=== PATIENT | female | born 1940 | race Caucasian/White ===

== ENCOUNTER → 2016-09-29 | Outpatient (CLI) | payer OTHER, BC | LOC: CIMAGING 10:01 | DX: Z12.31 Encounter for screening mammogram for malignant neoplasm of breast (principal); Z80.3 Family history of malignant neoplasm of breast | CPT/HCPCS: G0202 ==

== ENCOUNTER → 2016-11-01 | Outpatient (CLI) | payer OTHER, BC | LOC: CIMAGING 12:37 | DX: D17.1 Benign lipomatous neoplasm of skin and subcutaneous tissue of trunk (principal) | CPT/HCPCS: 76641; G0206 ==

== ENCOUNTER 2017-01-29 08:19 | Emergency (ER) | payer OTHER, BC ==
[2017-01-29] MEDS ORDERED: LET GEL TOPICAL 1 EA SYR TP ONE (08:26)
[2017-01-29 08:30] VITALS: PULSE 65; RESP 16
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
[2017-01-29] MEDS ORDERED: SKIN ADHESIVE (DERMABOND) 1 EACH TP ONE (08:46)
[2017-01-29] MEDS ORDERED: ACETAMINOPHEN 500 MG TAB PO ONE ×2 (08:49→08:50)
[2017-01-29 09:43] VITALS: BP 105/76; TEMP 97.5; O2SAT 96
== END 2017-01-29 09:42 | disposition home or self-care (01) ==
LOC: CED 08:19
PROC: 08QPXZZ Repair Left Upper Eyelid, External Approach (ICD-10-PCS; principal; 2017-01-29)
DX: S52.022A Displaced fracture of olecranon process without intraarticular extension of left ulna, initial encounter for closed fracture (principal); S01.112A Laceration without foreign body of left eyelid and periocular area, initial encounter; S80.212A Abrasion, left knee, initial encounter; S80.02XA Contusion of left knee, initial encounter; V18.0XXA Pedal cycle driver injured in noncollision transport accident in nontraffic accident, initial encounter; Y99.8 Other external cause status; Y93.55 Activity, bike riding
CPT/HCPCS: 12011; 73070; 99283; A4565

== ENCOUNTER 2017-01-31 08:28 | Day surgery (SDC) | payer OTHER, BC ==
[~2017-01-31 08:28] MED LIST: ceFAZolin 2 GM/DEXTROSE 100 ML IV ONE
[2017-01-31] MEDS ORDERED: LR 1,000 ML IV ONE (08:55)
[2017-01-31] MEDS ORDERED: LIDOCAINE 1% 2 ML INJ ID PRN (08:55)
[2017-01-31] MEDS ORDERED: BUPIVACAINE 0.5% 30 ML SDV ONE (09:02)
[2017-01-31 09:22] VITALS: PULSE 61
[2017-01-31] MEDS ORDERED: ceFAZolin 2 GM/DEXTROSE 100 ML IV ONE (10:00)
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
[2017-01-31] MEDS ORDERED: MIDAZOLAM 2 MG/2 ML VIAL IVP ONE (11:16)
--- NOTE | 2017-01-31 11:18 | PDANEPAE ---
ANE Past Medical History - Cardiovascular History Hx Hypertension: No Hx Arrhythmias: No Hx Chest Pain: No Hx Coronary Artery / Peripheral Vascular Disease: No Hx CHF / Valvular Disease: No Hx Palpitations: No - Pulmonary History Hx COPD: No Hx Asthma/Reactive Airway Disease: No Hx Recent Upper Respiratory Infection: No Hx Oxygen in Use at Home: No Hx Sleep Apnea: No Sleep Apnea Screening Result - Last Documented: Negative - Neurologic History Hx Cerebrovascular Accident: No Hx Seizures: No Hx Dementia: No - Endocrine History Hx Diabetes: No Hypothyroid: No Hyperthyroid: No Obesity: no - Renal History Hx Renal Disorders: No - Liver History Hx Hepatic Disorders: No - Neurological & Psychiatric Hx Hx Neurological and Psychiatric Disorders: No - Cancer History Hx Cancer: No - Congenital Disorder History Hx Congenital Disorders: No - GI History Hx Gastrointestinal Disorders: No - Other Health History Other Health History: WEARS GLASSES. ROAD RASH/ SCRAPS TO FACE AND LEG - Chronic Pain History Chronic Pain: No - Surgical History Prior Surgeries: HYSTERECTOMY. D&C ANE Review of Systems - Exercise capacity METS (RN): 6 METS ANE Patient History - Allergies Allergies/Adverse Reactions: No Known Allergies Allergy (Verified 01/30/17 17:18) - Home Medications Home Medications: Herbals/Supplements -Info Only 01/30/17 [Last Taken 01/29/17] - NPO status NPO Since - Liquids (Date): 01/30/17 NPO Since - Liquids (Time): 20:00 NPO Since - Solids (Date): 01/30/17 NPO Since - Solids (Time): 18:00 - Smoking Hx Smoking Status: Never smoked - Family Anes Hx Family Hx Anesthesia Complications: NONE ANE Labs/Vital Signs - Vital Signs Blood Pressure: 138/71 Heart Rate: 61 Respiratory Rate: 16 O2 Sat (%): 94 Height: 160.02 cm Weight: 62.596 kg ANE Physical Exam - Airway Neck exam: FROM Mallampati Score: Class 1 Mouth exam: normal dental/mouth exam - Pulmonary Pulmonary: no respiratory distress - Cardiovascular Cardiovascular: regular rate and rhythym - ASA Status ASA Status: I ANE Anesthesia Plan Anesthesia Plan: general endotracheal anesthesia
[2017-01-31] MEDS ORDERED: fentaNYL 100 MCG/2 ML INJ ONE ×2 (11:29→13:14)
[2017-01-31] MEDS ORDERED: PROPOFOL/EMULSION 500 MG/50 ML BOTTLE IV ONE (11:29)
[2017-01-31] MEDS ORDERED: epHEDrine SULFATE 10 MG/ML SYR ONE (11:47)
[2017-01-31] MEDS ORDERED: ROCURONIUM 50 MG/5 ML VIAL ONE (11:50)
[2017-01-31] MEDS ORDERED: LIDOCAINE 2% 5 ML SDV ONE (11:50)
[2017-01-31] MEDS ORDERED: LR 500 ML IV PRN (12:15)
[2017-01-31] MEDS ORDERED: PROMETHAZINE HCL 25 MG/ML INJ IVP PRN (12:15)
[2017-01-31] MEDS ORDERED: NALOXONE HCL 0.4 MG/ML INJ IVP PRN (12:15)
[2017-01-31] MEDS ORDERED: HYDROCODONE/APAP 5/325 TAB PO PRN (12:15)
[2017-01-31] MEDS ORDERED: fentaNYL 100 MCG/2 ML INJ IVP PRN (12:15)
[2017-01-31] MEDS ORDERED: DEXAMETHASONE 4 MG/ML VIAL ONE (12:32)
[2017-01-31] MEDS ORDERED: ONDANSETRON 4 MG/2 ML VIAL ONE (12:32)
[2017-01-31] MEDS ORDERED: SUGAMMADEX SODIUM 200 MG/2 ML VIAL IVP ONE (12:37)
--- NOTE | 2017-01-31 13:00 | POSTOPPROG ---
Post Op Note Date of Operation: 01/31/17 Surgeon: Sumanth Calloway Ambulatory Analyst: Erin Anesthesia: GET(General Endotracheal) Pre-op Diagnosis: left olecranon fx Post-op Diagnosis: same Indication: above Procedure: orif left olecranon Inf/Abcess present in the surg proc area at time of surgery?: No EBL: Minimal
--- NOTE | 2017-01-31 13:03 | POSTANESTH ---
Post Anesthetic Evaluation Cardiovascular Status: Normal, Stable Respiratory Status: Normal, Stable Level of Consciousness/Mental Status: Can Participate in Eval Pain Control: Adequate, Prn Tx Ordered Nausea/Vomiting Control: Adequate, Prn Tx Ordered Complications Possibly Related to Anesthesia: None Noted
[2017-01-31 13:33] VITALS: RESP 12
[2017-01-31 13:35] VITALS: TEMP 98.2
[2017-01-31 14:00] VITALS: BP 143/75; O2SAT 94
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
[2017-01-31] MEDS ORDERED: PROMETHAZINE HCL 25 MG/ML INJ ONE (14:43)
[2017-01-31] MEDS ORDERED: HYDROCODONE/APAP 5/325 TAB ONE (15:08)
== END 2017-01-31 16:12 | disposition home or self-care (01) ==
LOC: FSGY 08:28
PROVIDERS: ATTEND Orthopaedic Surgery
PROC: 0PSL04Z Reposition Left Ulna with Internal Fixation Device, Open Approach (ICD-10-PCS; principal; 2017-01-31 10:15)
DX: S52.022A Displaced fracture of olecranon process without intraarticular extension of left ulna, initial encounter for closed fracture (principal); Y93.55 Activity, bike riding
CPT/HCPCS: 24685; C1769; C1713; J0690; J1100; J2250; J2405; J2550; J2704; J3010

== ENCOUNTER → 2017-12-19 | Outpatient (CLI) | payer OTHER, BC | LOC: CIMAGING 08:00 | PROVIDERS: ATTEND Internal Medicine | DX: Z12.31 Encounter for screening mammogram for malignant neoplasm of breast (principal) ==

== ENCOUNTER → 2018-01-02 | Outpatient (CLI) | payer OTHER, BC | LOC: FIMAGING 10:21 | PROVIDERS: ATTEND Internal Medicine | DX: Z13.820 Encounter for screening for osteoporosis (principal); M85.89 Other specified disorders of bone density and structure, multiple sites ==

== ENCOUNTER 2018-07-31 08:07 | Emergency (ER) | payer OTHER, BC ==
[2018-07-31] MEDS ORDERED: MECLIZINE HCL 25 MG TAB PO ONE (08:42)
--- NOTE | 2018-07-31 08:46 | EDPHY ---
H & P Stated Complaint: Dizziness since this morning. Source: Patient Exam Limitations: No limitations - Personal History Current Tetanus Diphtheria and Acellular Pertussis (TDAP): Yes Tetanus Vaccine Date: within 10 years - Medical/Surgical History Hx Asthma: No Hx Chronic Respiratory Disease: No Hx Diabetes: No Hx Cardiac Disease: No Hx Renal Disease: No Hx Cirrhosis: No Hx Alcoholism: No Hx HIV/AIDS: No Hx Splenectomy or Spleen Trauma: No Other PMH: Hysterectomy - Social History Smoking Status: Never smoked Alcohol Use: None Time Seen by Provider: 07/31/18 08:20 HPI/ROS: CHIEF COMPLAINT: Vertigo HISTORY OF PRESENT ILLNESS: Patient is a 78-year-old female who comes to the emergency department complaining of intense vertigo. She 1st noticed it when she rolled over in bed at 3:00 a.m.. It woke her up. It resolved after several minutes. She was able to sleep again until 7:00 a.m. When it happened again when she got out of bed. She was able to get to the bathroom but while on the toilet felt so dizzy that she decided to lay onto the ground. Her symptoms again improved. She notices it particularly when she looks to the left. She denies any trauma. She denies any recent fever. No focal weakness or deficits. No vomiting but she does feel nauseous. No diarrhea. No recent URI symptoms. Severity: Severe but intermittent Modifying factors: Improves with sitting still REVIEW OF SYSTEMS: Constitutional: denies: chills, fever, recent illness, recent injury EENTM: denies: blurred vision, double vision, nose congestion Respiratory: denies: cough, shortness of breath Cardiac: denies: chest pain, irregular heart rate, lightheadedness, palpitations Gastrointestinal/Abdominal: denies: abdominal pain, diarrhea, nausea, vomiting, blood streaked stools Genitourinary: denies: dysuria, frequency, hematuria, pain Musculoskeletal: denies: joint pain, muscle pain Skin: denies: lesions, rash, jaundice, bruising Neurological: denies: headache, numbness, paresthesia, tingling, dizziness, weakness Hematologic/Lymphatic: denies: blood clots, easy bleeding, easy bruising Immunologic/allergic: denies: HIV/AIDS, transplant 10 systems reviewed and negative except as noted EXAM: GENERAL: Well-appearing, well-nourished and in no acute distress. HEAD: Atraumatic, normocephalic. EYES: No nystagmus at baseline but able to elicit nystagmus with Hallpike maneuver to the left. It is fatigable. Pupils equal round and reactive to light, extraocular movements intact, sclera anicteric, conjunctiva are normal. ENT: TMs normal, nares patent, oropharynx clear without exudates. Moist mucous membranes. NECK: Normal range of motion, supple without lymphadenopathy or JVD. LUNGS: Breath sounds clear to auscultation bilaterally and equal. No wheezes rales or rhonchi. HEART: Regular rate and rhythm without murmurs, rubs or gallops. ABDOMEN: Soft, nontender, normoactive bowel sounds. No guarding, no rebound. No masses appreciated. BACK: No CVA tenderness, no spinal tenderness, step-offs or deformities EXTREMITIES: Normal range of motion, no pitting or edema. No clubbing or cyanosis. NEUROLOGICAL: See above, Cranial nerves II through XII grossly intact. Normal speech, normal gait. 5/5 strength, normal movement in all extremities, normal sensation, normal reflexes, normal finger to nose. Normal clapping. Patient is not currently having nystagmus but it is elicitable with Hallpike maneuver. She does have negative head impulse test in that her eyes remained fixed. She does have skew deviation however with test of skew. Her left eye corrects when uncovered. PSYCH: Normal mood, normal affect. SKIN: Warm, dry, normal turgor, no visible rashes or lesions. (Benny Lin) Constitutional: Initial Vital Signs Temperature (C) 36.5 C 07/31/18 08:17 Heart Rate 63 07/31/18 08:17 Respiratory Rate 16 07/31/18 08:17 Blood Pressure 177/89 H 07/31/18 08:17 O2 Sat (%) 96 07/31/18 08:17 O2 Delivery Mode Room Air Allergies/Adverse Reactions: No Known Allergies Allergy (Verified 07/31/18 09:57) Home Medications: Medication Instructions Recorded Fish Oil 1,000 mg Softgel 07/31/18 Meclizine HCl [Meclizine HCl 25 mg 25 mg PO PRN PRN #10 tab 07/31/18 (RX,OTC)] Medical Decision Making - Diagnostics Imaging: Discussed imaging studies w/ call center assistant Radiologist - Diagnostics EKG Interpretation: An EKG obtained and was read and documented in trace view. Please see trace view for full reading and report. Sinus rhythm, no acute ischemic changes or arrhythmia. (Benny Lin) Imaging Results: Imaging Impressions Brain MRI 07/31/18 08:42 Impression: 1. Negative. No ischemia, hemorrhage, or subdural hematoma. 2. Mild nonspecific periventricular and subcortical white matter disease in the frontal and parietal lobes is within normal limit for age. Findings discussed with Emergency Department physician, Dr. Norman Conde on July 31, 2018 at 1112 hours. ED Course/Re-evaluation: I took over care of this patient on her arrival. MRI brain, noncontrast is negative as read and discussed with Dr. Jordin Oh. 11:20 a.m., the patient was re-evaluated. She is feeling better. Results of her MRI was discussed with both her and her . She feels comfortable going home and I feel she is safe for discharge. Her repeat neurologic Assessment is nonfocal. She is up and ambulatory with a normal gait and without assistance. I will prescribe her meclizine. I discussed follow-up with either her primary care physician or a neurologist. Return to emergency department precautions were thoroughly reviewed. All of her questions were answered. She was discharged from the emergency department in good condition with her who is driving. (Alan Schmitz) The patient symptoms are mostly consistent with benign positional vertigo. Her symptoms are severe and intermittent and fatigable. They also are elicited with Hallpike maneuver. She does however have an abnormal test of skew which would be consistent with central vertigo. She has an abnormal head impulse testing however this is unreliable in the setting of intermittent vertigo. We agreed to obtain lab work and EKG and treat with meclizine but then send her to [facility] for an MRI to rule out central vertigo. 9:00 a.m. the patient is doing better. We discussed transfer to [facility] for MRI. They would prefer to drive themselves. I believe that this is safe and likely faster than EMS. She is not a stroke alert. We had a long discussion about benign positional vertigo and treatments as well as follow-up. 9:15 a.m. Discussed the case with Dr. Alan Schmitz who accepted transfer. (Benny Lin) Differential Diagnosis: Partial list of the Differential diagnosis considered include but were not limited to; benign positional vertigo, Meniere's disease, vestibular neuritis, central vertigo and although unlikely based on the history and physical exam, I also considered dissection, infection, trauma. (Benny Lin) - Data Points Laboratory Results: 07/31/18 09:01 POC Sodium 141 mEq/L mEq/L (135-145) POC Potassium 3.7 mEq/L mEq/L (3.3-5.0) POC Chloride 102.0 mEq/L mEq/L (97-110) POC Total CO2 26 mEq/L mEq/L (22-31) POC BUN 18 mg/dL mg/dL (7-23) POC Creatinine 0.8 mg/dL mg/dL (0.6-1.0) POC Glucose 99 mg/dL mg/dL (70-100) POC Calcium 9.5 mg/dL mg/dL (8.5-10.4) Medications Given: Discontinued Medications Meclizine HCl (Meclizine Hcl) 50 mg PO EDNOW ONE Stop: 07/31/18 08:43 Last Admin: 07/31/18 08:57 Dose: 50 mg Point of Care Test Results: Chemistry 07/31/18 09:01 POC Sodium 141 mEq/L mEq/L (135-145) POC Potassium 3.7 mEq/L mEq/L (3.3-5.0) POC Chloride 102.0 mEq/L mEq/L (97-110) POC Total CO2 26 mEq/L mEq/L (22-31) POC BUN 18 mg/dL mg/dL (7-23) POC Creatinine 0.8 mg/dL mg/dL (0.6-1.0) POC Glucose 99 mg/dL mg/dL (70-100) POC Calcium 9.5 mg/dL mg/dL (8.5-10.4) Departure - Departure Disposition: Home, Routine, Self-Care Clinical Impression: Vertigo Condition: Good Instructions: Vertigo (ED) Additional Instructions: Read and follow provided instructions. Follow-up with your primary care physician or with Neurology, in 1-2 days for re -evaluation as discussed. Take medication as prescribed for vertigo. This medication may make you drowsy and dry your mouth out. Do not drive while on this medication. Return to the emergency department for worsening symptoms, difficulty walking, vomiting, worsening headache or other serious concerns. Referrals: Ann Marie Frost PAC [Physician Crib Pad Maker] - 3-4 days, if not improved Keyona Ruth MD [Primary Care Provider] - 3-4 days, if not improved Vitor Prieto DO [Medical Doctor] - As per Instructions Prescriptions: Meclizine HCl [Meclizine HCl 25 mg (RX,OTC)] 25 mg PO PRN PRN #10 tab PRN Reason: Dizziness
--- NOTE | 2018-07-31 09:01 | CPEKG ---
Test Reason : OPEN Blood Pressure : / mmHG Vent. Rate : 059 BPM Atrial Rate : 059 BPM P-R Int : 161 ms QRS Dur : 092 ms QT Int : 481 ms P-R-T Axes : 064 -03 093 degrees QTc Int : 477 ms Sinus rhythm Borderline abnrm T, anterolateral leads Confirmed by Benny Lin ([id number]) on 07/31/2018 9:01:18 AM Referred By: Confirmed By:Benny Lin
[2018-07-31 11:45] VITALS: BP 155/74
== END 2018-07-31 11:45 | disposition home or self-care (01) ==
LOC: CED 08:07
DX: R42 Dizziness and giddiness (principal)
CPT/HCPCS: 80048-ER

== ENCOUNTER → 2018-12-20 | Outpatient (CLI) | payer OTHER, BC | LOC: CIMAGING 08:00 ==